=== PATIENT | male | born 1955 | race Caucasian/White ===

== ENCOUNTER 2016-11-24 14:59 | Emergency (ER) | payer OTHER ==
[2016-11-24] MEDS ORDERED: NORMAL SALINE 1,000 ML IV ONE (15:32)
[2016-11-24] MEDS ORDERED: ONDANSETRON HCL/PF 2 MG/ML VIAL IV ONE (15:33)
--- NOTE | 2016-11-24 15:33 | ERNOTE ---
Medical Problem HPI - Narrative Date of Service: 11/24/16 - General Chief Complaint: Nausea/Vomiting Time Seen by Provider: 11/24/16 15:26 Source: patient, RN notes reviewed Exam Limitations: no limitations - Immun/Allergies/Home Medications Immunizations: IMMUNIZATION HX Immunizations Up to Date Yes Allergies/Adverse Reactions: Allergies No Known Allergies Allergy (Verified 11/24/16 15:13) Home Medications: HOME MEDICATIONS Calcium Carb & Citrate/Vit D3 [Calcium + Vitamin D3 Caplet] 500 mg PO BID [Last Taken 09/22/13 10:00] Diclofenac Sodium [Voltaren] 50 mg PO BID 05/04/13 [Last Taken 09/22/13 10:00] Levothyroxine Sodium [Synthroid] 75 mcg PO DAILY 05/04/13 [Last Taken 09/22/13 10:00] Multivitamins [Multivitamin Loreto] 1 cap PO DAILY 05/04/13 [Last Taken 09/19/13 ] Omeprazole [Prilosec] 20 mg PO DAILY 05/04/13 [Last Taken 09/22/13 10:00] Sildenafil Citrate [Viagra] 100 mg PO DAILY PRN 05/04/13 [Last Taken Unknown] metFORMIN HCL [Glucophage] 500 mg PO BID 05/04/13 [Last Taken 09/22/13 10:00] Blood Sugar Diagnostic, Drum [Accu-Chek Compact] 1 each MC DAILY 05/13/14 [Last Taken Unknown] [place]-3/Dha/Epa/Fish Oil [Fish Oil 500 mg Softgel] 1 each PO DAILY 05/13/14 [ Last Taken Unknown] Aspirin 05/31/15 [Last Taken Unknown] Lorazepam 05/31/15 [Last Taken Unknown] Atorvastatin Calcium 09/24/16 [Last Taken Unknown] Bupropion HBr 09/24/16 [Last Taken Unknown] Gabapentin 09/24/16 [Last Taken Unknown] Lamotrigine 09/24/16 [Last Taken Unknown] Lorazepam 09/24/16 [Last Taken Unknown] Ondansetron [Zofran Odt] 8 mg PO Q8H PRN #12 tab 11/24/16 [Last Taken Unknown] - History of Present History Narrative: 61 year old male ambulatory to the ED for vomiting and diarrhea that began this morning. He had some gas, belching and stomach upset after dinner last evening. He had diarrhea from 0600 until about 1000 today. He last vomited 2 hours ago. He is concerned that he is dehydrated because he spent the past few days boating and had not been drinking much water. He denies any sick contacts. Date (Duration): 11/24/16 Time (Timing): 06:00 Review of Systems - Review of Systems Constitutional: Present: malaise. Absent: recent illness, fever, chills EYE: Present: no symptoms reported ENT: Present: no symptoms reported Respiratory: Absent: shortness of breath, cough Cardiology: Absent: chest pain, syncope Gastrointestinal/Abdominal: Present: nausea, vomiting, diarrhea, eating less, drinking less. Absent: abdominal pain Genitourinary: Absent: dysuria, decreased urinary output Musculoskeletal: Present: no symptoms reported Skin: Absent: rash, lesions Neurological: Absent: headache, dizziness/light-headedness Endocrine: Present: no symptoms reported Hematologic/Lymphatic: Present: no symptoms reported Psych: Present: no symptoms reported - Patient's Past Medical History Patient History - Medical: Diabetes Type 2, Depression Patient History - Cardiac/Respiratory: No pertinent hx Patient History - Cancer: No Hx of Cancer Patient History - Surgical Procedures: Orthopedic Patient History - Other: None - Social History Living Situations: home Abuse History: No History of abuse Psych History: Hx of Depression Smoking Status: Never smoker - Immunizations Immunizations Up to Date: Yes Physical Exam - Physical Exam General Appearance: Present: wd/wn, alert, no apparent distress, other - appears mildly uncomfortable Neck: Present: normal inspection, nontender, supple Respiratory: Present: no respiratory distress, normal breath sounds, no accessory muscle use, lungs clear Cardiovascular/Chest: Present: regular rate, rhythm, no murmur, normal peripheral pulses Gastrointestinal/Abdominal: Present: normal bowel sounds, soft, tenderness - Left upper and lower quads, mild, distended - Obese Extremity Exam: Present: normal inspection, no edema Neurological Exam: Present: alert, oriented, normal mood/affect, no motor/ sensory deficits Skin Exam: Present: normal color, warm/dry ED Progress - Results and Orders Patient's Lab Results:: I have reviewed the patient's lab results. - Vital Signs Patient's Vital Signs:: I have reviewed the patient's vital signs. Vital Signs: Vital Signs 11/24/16 15:04 Temperature 36.7 C Pulse Rate 97 Respiratory 14 Rate Blood Pressure 122/83 O2 Sat by Pulse 95 Oximetry - Progress/Reassessment Chief Complaint: Nausea/Vomiting Progress:: Improved Progress Note-Subjective: 11/24/16 17:02 Patient is feeling a lot better after IV fluids and Zofran. Will d/c with rx for Zofran ODT. Departure - Departure Clinical Impression: Viral gastroenteritis Disposition: Home Follow Up Needed Condition: Stable Instructions: Viral Gastroenteritis, Adult, [id number] Additional Instructions: Liquids as discussed - progress to soft, bland foods as tolerated Return for new/worsening symptoms Referrals: Linda Rainey DO [Primary Care Provider] - Prescriptions: Ondansetron [Zofran Odt] 8 mg PO Q8H PRN #12 tab PRN Reason: Nausea
[2016-11-24] MEDS ORDERED: ONDANSETRON HCL/PF 2 MG/ML VIAL ONE (15:39)
[2016-11-24 15:47] LABS: Hematocrit 40.3 % (42.0-52.0); Hemoglobin 13.8 gm/dL (13.5-18.0); Mean Cell Volume 87.2 fl (78-100); Mean Corpuscular Hemoglobin 29.9 pg (27-31); Mean Corpuscular Hgb Conc 34.2 g/dl (32-36); Mean Platelet Volume 10.1 fl (6.0-9.5); Neutrophil # 9.2 K/mm3 (1.3-6.0); Neutrophil % 85.5 % (42-75.0); Platelet Count 184 K/mm3 (150-450); Red Blood Count 4.62 M/mm3 (4.7-6.0); Red Cell Distribution Width 12.9 % (11.5-14.0); White Blood Count 10.8 K/mm3 (4.0-10.5)
[2016-11-24 16:00] LABS: Albumin * 4.3 gm/dl (3.4-5.0); Anion Gap 18.8 mmol/L (6.8-13.8); BUN/Creatinine Ratio 20.3 (9.0-21.6); Bilirubin, Total 0.9 mg/dL (0.0-1.1); Ca. Corrected For Albumin 8.9 mg/dL (8.4-10.2); Calcium * 9.5 mg/dL (7.9-10.9); Carbon Dioxide 22.4 mmol/L (24-32.6); Potassium 4.2 mmol/L (3.4-4.6); Total Protein 8.2 gm/dL (6.2-8.2)
[2016-11-24 16:57] VITALS: BP 114/76
== END 2016-11-24 17:13 | disposition home or self-care (01) ==
LOC: ER 14:59
DX: A08.4 Viral intestinal infection, unspecified (principal)
CPT/HCPCS: 36415; 80053; 85025; 96374; 99284; J2405

== ENCOUNTER 2020-04-20 14:50 | Inpatient (IN) ==
[2020-04-20] MEDS ORDERED: NORMAL SALINE 1,000 ML IV ONE ×2 (15:05→17:58)
--- NOTE | 2020-04-20 15:20 | ERNOTE ---
Dyspnea - Date Date of Service: 04/20/20 - General Presenting Symptoms: other - COVID-19 and hypoxia Time Seen by Provider: 04/20/20 14:59 Source: patient, EMS Exam Limitations: no limitations - Immun/Allergies/Home Medications Immunizations: IMMUNIZATION HX Immunizations Up to Date Yes History of Influenza Vaccine Yes Hx Pneumococcal Vaccination Yes Allergies/Adverse Reactions: Allergies No Known Allergies Allergy (Verified 04/20/20 14:53) Home Medications: HOME MEDICATIONS Blood Sugar Diagnostic, Drum [Accu-Chek Compact] 1 ea MC DAILY 05/13/14 [Last Taken Unknown] sildenafil 100 mg tablet 100 mg PO DAILY PRN #20 tab 05/11/19 [Last Taken Unknown] sertraline 100 mg tablet 100 mg PO DAILY #90 tab 11/17/19 [Last Taken Unknown] sertraline 25 mg tablet 25 mg PO DAILY #90 tab 11/17/19 [Last Taken Unknown] blood sugar diagnostic See Dose Instructions .ROUTE .MEDSUPPLY #100 ea 11/19/19 [Last Taken Unknown] gabapentin 300 mg capsule 600 mg PO HS 90 Days #180 cap 11/19/19 [Last Taken Unknown] lancets 28 gauge See Dose Instructions .ROUTE .MEDSUPPLY #100 ea 11/19/19 [Last Taken Unknown] metformin 1,000 mg tablet 1,000 mg PO BID #180 tab 11/19/19 [Last Taken Unknown] Cyclobenzaprine HCl 10 mg PO TID PRN #21 tab 01/03/20 [Last Taken Unknown] levothyroxine 75 mcg tablet 75 mcg PO DAILY #90 tab 02/17/20 [Last Taken Unknown] omeprazole 20 mg capsule,delayed release 20 mg PO DAILY #90 cap 02/17/20 [Last Taken Unknown] clonazepam 1 mg tablet 0.5 mg PO HS #90 tab 02/18/20 [Last Taken Unknown] atorvastatin 20 mg tablet 40 mg PO DAILY #0.1 tab 03/07/20 [Last Taken Unknown] benzonatate 200 mg capsule 200 mg PO TID PRN #30 cap 04/17/20 [Last Taken Unknown] Albuterol Sulfate [Proventil Hfa] 6.7 gm IH PRN PRN 04/20/20 [Last Taken Unknown] - History of Present Illness Narrative: This patient is a 65-year-old gentleman who arrived by ambulance with COVID-19 and hypoxia. He became ill on April 03, 2016 days ago, with fever, headache and cough. His fever and headache have resolved. He continues to cough. He has been feeling short of breath. He got a pulse oximeter yesterday and it has been reading in the 80s. He had a virtual appointment with Dr. De La Rosa today and was told to come to the hospital. Review of Systems - Review of Systems Constitutional: Absent: fever EYE: Absent: vision changes ENT: Absent: ear pain, nose congestion, nasal drainage, sore throat Respiratory: Present: shortness of breath, cough Cardiology: Absent: chest pain Gastrointestinal/Abdominal: Present: diarrhea. Absent: nausea, vomiting, constipation, abdominal pain Genitourinary: Absent: frequency, pain, dysuria, hematuria Musculoskeletal: Present: other - No leg pain Skin: Present: rash - He says he has gotten blisters on his abdomen and chest. Neurological: Absent: headache Endocrine: Present: other - He is diabetic on Metformin Hematologic/Lymphatic: Present: other - No active bleeding. Psych: Present: no symptoms reported Medical History (Last Reviewed 04/20/20 @ 15:18 by Nazario Campa MD) Joint pain in both hands (Acute) Skin lesion of face (Acute) r/o seborrheic keratoses Osteoarthritis (Acute) 1st MCP, right hand CRF (chronic renal failure) (Chronic) Type II diabetes mellitus (Chronic) GERD (gastroesophageal reflux disease) (Chronic) Major depressive disorder, recurrent, moderate (Acute) Hypothyroidism (Chronic) BPPV (benign paroxysmal positional vertigo) (Chronic) Hyperlipidemia (Chronic) Gastroesophageal reflux disease (Chronic) JOHNNIE on CPAP (Chronic) Diabetic neuropathy (Chronic) Type II diabetes mellitus (Chronic) Acute renal failure (Acute) Viral gastroenteritis (Acute) Lab test positive for detection of COVID-19 virus Onset Date: 04/06/20 BPPV (benign paroxysmal positional vertigo) Onset Date: 05/20/16 Depression Onset Date: Unknown Diabetes mellitus Onset Date: Unknown Erectile dysfunction Onset Date: Unknown GERD (gastroesophageal reflux disease) Onset Date: Unknown Hyperlipidemia Onset Date: Unknown Hypothyroidism Onset Date: Unknown Meralgia paraesthetica Onset Date: 05/20/16 Left Sleep apnea Onset Date: Unknown uses cpap Vertigo Onset Date: 06/11/11 persistent Surgical History: Surgical History (Last Reviewed 04/20/20 @ 15:18 by Nazario Campa MD) H/O barium enema Onset Date: 05/25/14 H/O colonoscopy Onset Date: 05/25/14 H/O foot surgery Onset Date: 04/20/09 right. saathoff-excision fibroma plantar area right 5th metatarsal H/O repair of rotator cuff Onset Date: 11/30/15 History of arthroplasty of left ankle Onset Date: 05/11/13 History of arthroscopic surgery of shoulder Onset Date: 08/01/05 Left History of arthroscopic surgery of shoulder Onset Date: 1994 Right Family History: Family History (Last Reviewed 04/20/20 @ 15:18 by Nazario Campa MD) Mother CVA (cerebral vascular accident) Brother Cancer Colon polyps Father PTSD (post-traumatic stress disorder) Sister Cancer Social History: (Last Reviewed 04/20/20 @ 15:18 by Nazario Campa MD) Social History: Marital status: lives independently: Yes household members: spouse current occupational status: employed current occupation: production Highest level of school completed/degree received: some college, no degree Service: Yes branch: [employer] dates of service: [employer] Tobacco: Smoking Status: Former smoker Alcohol: alcohol intake: former Substance Use: substance use type: does not use Dietary Habits: caffeine: Yes Type: coffee Physical Exam - Physical Exam General Appearance: Present: wd/wn, alert, moderate distress - He is anxious appearing and tachypneic. Head Exam: Present: normal inspection, no evidence of injury Eye Exam: Normal inspection: bilateral Ears, Nose, Throat: Present: normal ENT inspection Neck: Present: normal inspection, supple Respiratory: Present: no accessory muscle use, respiratory distress - Tachypneic, decreased breath sounds, crackles - Throughout. Cardiovascular/Chest: Present: no murmur, tachycardia Gastrointestinal/Abdominal: Present: normal bowel sounds, nontender, nondistended, soft, no organomegaly Back Exam: Present: normal inspection Extremity Exam: Present: normal inspection, non-tender, no edema Neurological Exam: Present: alert, oriented, no motor/sensory deficits - No gross lateralizing deficit.. Absent: normal mood/affect Skin Exam: Present: normal color, warm/dry, other - No blisters noted. There are some less than half centimeter red flat lesions on the chest and abdomen. Progress - Date and Time Seen: Date and Time: 04/20/20 16:58 Dr. Lyon agrees to admit the patient. - Results and Orders Patient's Lab Results:: I have reviewed the patient's lab results. Results and Orders: Laboratory Tests 04/20/20 04/20/20 04/20/20 15:15 15:15 15:15 WBC 5.5 RBC 4.38 L Hgb 12.4 L Hct 37.3 L MCV 85.2 MCH 28.3 MCHC 33.2 RDW 13.1 Plt Count 248 MPV 9.4 Lymphocytes % (Manual) Pending PT 12.9 H INR (Anticoag Therapy) 1.25 H PTT (Soni) D-Dimer Sodium 135 Plasma Sodium 135 Potassium 3.3 L Chloride 102 Carbon Dioxide 20.2 L Anion Gap 16.1 H BUN 12 Creatinine 1.20 Est GFR (Non-Af Amer) 64 D BUN/Creatinine Ratio 10.0 Random Glucose 108 Lactic Acid, Venous Calcium 8.2 Calcium Adj for Albumin 9.1 Total Bilirubin 0.8 AST 63 H ALT 40 Alkaline Phosphatase 110 Creatine Kinase 70 Troponin I Less than 0.017 C-Reactive Prot, Quant 13.3 H Total Protein 7.0 Albumin 2.5 L Ethyl Alcohol Less than 3.0 04/20/20 04/20/20 04/20/20 15:15 15:15 15:15 WBC RBC Hgb Hct MCV MCH MCHC RDW Plt Count MPV Lymphocytes % (Manual) PT INR (Anticoag Therapy) PTT (Soni) 24.4 D-Dimer 9.63 H Sodium Plasma Sodium Potassium Chloride Carbon Dioxide Anion Gap BUN Creatinine Est GFR (Non-Af Amer) BUN/Creatinine Ratio Random Glucose Lactic Acid, Venous 1.8 Calcium Calcium Adj for Albumin Total Bilirubin AST ALT Alkaline Phosphatase Creatine Kinase Troponin I C-Reactive Prot, Quant Total Protein Albumin Ethyl Alcohol - Vital Signs Patient's Vital Signs:: I have reviewed the patient's vital signs. Vital Signs: Vital Signs 04/20/20 14:50 Temperature 36.9 C Pulse Rate 111 H Respiratory Rate 46 H Blood Pressure 120/77 O2 Sat by Pulse Oximetry 92 L - EKG EKG #1 EKG read: Interp. by me EKG Comments: Sinus tachycardia Rate 105 Incomplete right bundle branch block Nonspecific ST and T wave changes Compared to an EKG dated 04/14/2020, the ST and T wave changes are improved. - X-Ray X-Ray #1 X-Ray: chest Interpretation: Reviewed by me X-ray Comments: Chest Single View *~ Exam Date: 04/20/2020 15:29 Ordering Physician: Nazario Campa MD HISTORY: covid, hypoxic ONE VIEW CHEST Comparison: 04/14/2020, 06/21/2015 Technique: A single portable upright AP view of the chest were obtained. Findings: The cardiac silhouette is within normal limits of size. The mediastinum and hilum are with in normal limits. There is consolidation involving the left mid to lower lung zone, concerning for pneumonia. There are probable subtle infiltrates in the right lung base. I do not see evidence for pleural effusion. IMPRESSION: 1. CONSOLIDATION / INFILTRATES INVOLVING THE LEFT MID TO LOWER LUNG ZONE AND POSSIBLY THE RIGHT LUNG BASE. Electronically signed by Cal Clark M.D.. - CT/Ultrasound CT/Ultrasound Narrative: CTA Chest~ Exam Date: 04/20/2020 16:07 Ordering Physician: Nazario Campa MD Indication: Covid positive. Increasing shortness of breath for 2 weeks. Worse today. Tachycardia. Hypoxia. Elevated d-dimer. Technique: Multiple thin-section contrast-enhanced axial CT images of the chest were obtained after rapid infusion of intravenous contrast material, according to pulmonary angiography protocol. Coronal and axial maximal intensity projection (MIP) images were also submitted for interpretation. Individualized dose optimization technique was used for the performed procedure including automated exposure control, adjustment of the mA and/or kV according to patient size and/or the iterative reconstruction technique. Comparison: No prior CT scans. Findings: There is suboptimal opacification of the pulmonary arterial system due to delayed bolus timing. However the exam is still diagnostic. No intraluminal filling defects to suggest pulmonary embolism. The aorta is normal caliber and course without aneurysmal dilation or evidence for dissection. There is diffuse bilateral airspace consolidation and patchy groundglass opacities involving all lung farmer bilaterally. Mostly involving the left lung compared to the right lung. Overall findings consistent with multifocal Covid pneumonia Mediastinal or hilar lymphadenopathy. The osseous structures demonstrate degenerative change of the spine and shoulders. IMPRESSION: 1. NO EVIDENCE FOR PULMONARY EMBOLISM. 2. EXTENSIVE BILATERAL LEFT WORSE THAN RIGHT MULTIFOCAL COVID PNEUMONIA. Electronically signed by Higinio Rogel D.O.. - Progress/Reassessment Chief Complaint: Dyspnea Departure Clinical Impression: Pneumonia due to COVID-19 virus, Hypoxia - Departure Disposition: Still a patient Condition: Fair Referrals: Elaine De La Rosa MD [Primary Care Provider] -
[2020-04-20 15:25] LABS: Hematocrit 37.3 % (42.0-52.0); Hemoglobin 12.4 gm/dL (13.5-18.0); Mean Cell Volume 85.2 fl (78-100); Mean Corpuscular Hemoglobin 28.3 pg (27-31); Mean Corpuscular Hgb Conc 33.2 g/dl (32-36); Mean Platelet Volume 9.4 fl (8-11.3); Platelet Count 248 K/mm3 (150-450); Red Blood Count 4.38 M/mm3 (4.7-6.0); Red Cell Distribution Width 13.1 % (11.5-14.0); White Blood Count 5.5 K/mm3 (4.0-10.5)
[2020-04-20 15:30] LABS: Total Cells Counted 100
[2020-04-20 15:34] LABS: Prothrombin Time (Patient) 12.9 Seconds (9.1-10.7)
[2020-04-20 15:36] LABS: INR 1.25 INR (0.92-1.08)
[2020-04-20 15:47] LABS: ALT 40 U/L (19-67); AST 63 U/L (0-48); Albumin * 2.5 gm/dl (3.4-5.0); Alkaline Phosphatase * 110 U/L (50-170); Anion Gap 16.1 mmol/L (6.8-13.8); Bilirubin, Total 0.8 mg/dL (0.0-1.1); Blood Urea Nitrogen 12 mg/dL (6-23); CK Total * 70 U/L (0-259); Ca. Corrected For Albumin 9.1 mg/dL (8.4-10.2); Calcium * 8.2 mg/dL (7.9-10.9); Carbon Dioxide 20.2 mmol/L (24-32.6); Chloride 102 mmol/L (97-106); Glucose * 108 mg/dL (70-110); Potassium 3.3 mmol/L (3.4-4.6); Sodium 135 mmol/L (132-142)
[2020-04-20 15:54] LABS: Troponin I Less than 0.017 ng/mL (0.00-0.10)
[2020-04-20 15:55] LABS: CRP 13.3 mg/dL (0.0-0.9)
[2020-04-20 16:43] LABS: Atypical (Reactive) Lymph 2 % (0-2); Basophil 1 % (0-1); Eosinophil 2 % (0-3); Lymphocyte 17 % (20-51); Monocyte 8 % (0-9); Neutrophil 70 % (42-75); Neutrophil # 3.9 K/mm3 (1.3-6.0)
[2020-04-20 16:45] LABS: Giant Platelets Trace; Platelet Estimate Normal (NORMAL)
[2020-04-20] MEDS ORDERED: CYCLOBENZAPRINE HCL 10 MG TABLET PO PRN (18:01)
[2020-04-20] MEDS ORDERED: BENZONATATE 200 MG PO PRN (18:01)
[2020-04-20] MEDS ORDERED: ALBUTEROL SULFATE/IPRATROPIUM 3 ML NEBU IH PRN (18:06)
[2020-04-20] MEDS ORDERED: LANCETS SCH (18:15)
[2020-04-20] MEDS ORDERED: DEXAMETHASONE 4 MG TABLET PO SCH (18:45)
--- NOTE | 2020-04-20 18:50 | HP ---
Chief Complaint - Chief Complaint Date of Service: 04/20/20 Time of Service: 18:37 Chief Complaint: I have cough fever chills and weakness for more than 2 weeks History of Present Illness: 65-year-old male with past medical history of type 2 diabetes, hyperlipidemia, GERD, depression, JOHNNIE on CPAP, diabetic neuropathy, and hypothyroidism was evaluated in the ER for worsening shortness of breath cough and weakness of more than 2 weeks duration. The patient reports becoming ill on April 04 when he developed significant chills followed by fever, he reports developing an intense dry cough the following day and gradually got weak. His symptoms progressively got worse so he himself and his daughter went to the respiratory clinic here at [facility] where they were tested for COVID-19 virus, there were subsequently found to be positive and were sent into quarantine. The patient gradually worsened and reports his cough got so bad that he could not use his CPAP which kept him from sleeping. He developed significant shortness of breath and went to the ER. [facility] on Friday, the patient was evaluated was treated with IV fluids potassium replacement and was prescribed an oral antitussive and was discharged home. However he worsened instead of improved and his shortness of breath became more severe, this morning at 4 AM the patient was awakened to a coughing fit and difficulty breathing so he called his PCPs office. He informed the PCP that his oxygen saturation has been in the mid to upper 80s which is new for him so he was advised to go to the ER. Once in the ER the patient had a chest x-ray that showed bilateral infiltrates worse on the left and was found to have crackles. He was treated with IV fluids and cough suppressants and the internal medicine service was consulted. Medical History (Last Reviewed 04/20/20 @ 15:18 by Nazario Campa MD) Joint pain in both hands (Acute) Skin lesion of face (Acute) r/o seborrheic keratoses Osteoarthritis (Acute) 1st MCP, right hand CRF (chronic renal failure) (Chronic) Type II diabetes mellitus (Chronic) GERD (gastroesophageal reflux disease) (Chronic) Major depressive disorder, recurrent, moderate (Acute) Hypothyroidism (Chronic) BPPV (benign paroxysmal positional vertigo) (Chronic) Hyperlipidemia (Chronic) Gastroesophageal reflux disease (Chronic) JOHNNIE on CPAP (Chronic) Diabetic neuropathy (Chronic) Type II diabetes mellitus (Chronic) Acute renal failure (Acute) Viral gastroenteritis (Acute) Lab test positive for detection of COVID-19 virus Onset Date: 04/06/20 BPPV (benign paroxysmal positional vertigo) Onset Date: 05/20/16 Depression Onset Date: Unknown Diabetes mellitus Onset Date: Unknown Erectile dysfunction Onset Date: Unknown GERD (gastroesophageal reflux disease) Onset Date: Unknown Hyperlipidemia Onset Date: Unknown Hypothyroidism Onset Date: Unknown Meralgia paraesthetica Onset Date: 05/20/16 Left Sleep apnea Onset Date: Unknown uses cpap Vertigo Onset Date: 06/11/11 persistent Surgical History: Surgical History (Last Reviewed 04/20/20 @ 15:18 by Nazario Campa MD) H/O barium enema Onset Date: 05/25/14 H/O colonoscopy Onset Date: 05/25/14 H/O foot surgery Onset Date: 04/20/09 right. saathoff-excision fibroma plantar area right 5th metatarsal H/O repair of rotator cuff Onset Date: 11/30/15 History of arthroplasty of left ankle Onset Date: 05/11/13 History of arthroscopic surgery of shoulder Onset Date: 08/01/05 Left History of arthroscopic surgery of shoulder Onset Date: 1994 Right Family History: Family History (Last Reviewed 04/20/20 @ 15:18 by Nazario Campa MD) Mother CVA (cerebral vascular accident) Brother Cancer Colon polyps Father PTSD (post-traumatic stress disorder) Sister Cancer Social History: (Last Reviewed 04/20/20 @ 15:18 by Nazario Campa MD) Social History: Marital status: lives independently: Yes household members: spouse current occupational status: employed current occupation: production Highest level of school completed/degree received: some college, no degree Service: Yes branch: [employer] dates of service: [employer] Tobacco: Smoking Status: Former smoker Alcohol: alcohol intake: former Substance Use: substance use type: does not use Dietary Habits: caffeine: Yes Type: coffee Peds Patient Hx - Developmental: No Pertinent Hx Peds Patient Hx - Medical: No Pertinent Hx Peds Patient Hx - Cardiac/Respiratory: No Pertinent Hx Peds Patient Hx - Surgical: No Surgical History Patient History - Cancer: No Hx of Cancer Review Of Systems (GEN) - Review of Systems Generalized/Overall Review: Present: Weakness, Chills, Fever, Malaise, Fatigue EENTM: Present: No Symptoms Reported Respiratory: Present: Cough, Shortness of Breath Cardiac: Present: No Symptoms Reported Abdominal: Present: No Symptoms Reported Genitourinary: Present: No Symptoms Reported Musculoskeletal: Present: No Symptoms Reported Neurological: Present: No Symptoms Reported Skin: Present: Rash - Maculopapular rash on back 2 weeks duration Endocrine: Present: No Symptoms Reported Misc: All systems neg except as marked Immunizations: IMMUNIZATION HX Immunizations Up to Date Yes History of Influenza Vaccine Yes Hx Pneumococcal Vaccination Yes Allergies/Adverse Reactions: Allergies Allergy/AdvReac Type Severity Reaction Status Date / Time No Known Allergies Allergy Verified 04/20/20 14:53 Home Medications: HOME MEDICATIONS Blood Sugar Diagnostic, Drum [Accu-Chek Compact] 1 ea MC DAILY 05/13/14 [Last Taken Unknown] sildenafil 100 mg tablet 100 mg PO DAILY PRN #20 tab 05/11/19 [Last Taken Unknown] sertraline 100 mg tablet 100 mg PO DAILY #90 tab 11/17/19 [Last Taken Unknown] sertraline 25 mg tablet 25 mg PO DAILY #90 tab 11/17/19 [Last Taken Unknown] blood sugar diagnostic See Dose Instructions .ROUTE .MEDSUPPLY #100 ea 11/19/19 [Last Taken Unknown] gabapentin 300 mg capsule 600 mg PO HS 90 Days #180 cap 11/19/19 [Last Taken Unknown] lancets 28 gauge See Dose Instructions .ROUTE .MEDSUPPLY #100 ea 11/19/19 [Last Taken Unknown] metformin 1,000 mg tablet 1,000 mg PO BID #180 tab 11/19/19 [Last Taken Unknown] Cyclobenzaprine HCl 10 mg PO TID PRN #21 tab 01/03/20 [Last Taken Unknown] levothyroxine 75 mcg tablet 75 mcg PO DAILY #90 tab 02/17/20 [Last Taken Unknown] omeprazole 20 mg capsule,delayed release 20 mg PO DAILY #90 cap 02/17/20 [Last Taken Unknown] clonazepam 1 mg tablet 0.5 mg PO HS #90 tab 02/18/20 [Last Taken Unknown] atorvastatin 20 mg tablet 40 mg PO DAILY #0.1 tab 03/07/20 [Last Taken Unknown] benzonatate 200 mg capsule 200 mg PO TID PRN #30 cap 04/17/20 [Last Taken Unknown] Albuterol Sulfate [Proventil Hfa] 6.7 gm IH PRN PRN 04/20/20 [Last Taken Unknown] Exam - Exam Vital Signs: Vital Signs - Last Taken Temp 37.5 C 04/20/20 17:23 Pulse 91 04/20/20 17:23 Resp 35 H 04/20/20 17:23 BP 118/89 04/20/20 17:23 Pulse Ox 94 04/20/20 17:23 Constitutional: Present: Alert, Oriented x3, Cooperative, Well developed, Well nourished, No distress ENT Exam: Present: normal ENT inspection, hearing grossly normal, pharynx normal Eye Exam: bilateral eye: normal inspection, PERRL, EOMI Neck: Present: non-tender, full range of motion, supple, normal inspection, trachea midline Back Exam: Present: normal inspection, no CVA tenderness, no vertebral tenderness Breasts: Present: Exam deferred, Nontender Respiratory: Present: chest non-tender, no respiratory distress, no accessory muscle use, crackles - Bibasilar crackles worse on left Cardiovascular/Chest: Present: normal peripheral pulses, regular rate, rhythm, no chest tenderness, no edema, no gallop, no JVD, no murmur, no rub Peripheral Pulses: carotid (R): 3+, carotid (L): 3+, femoral (R): 3+, femoral (L): 3+, dorsalis-pedis (R): 3+, dorsalis-pedis (L): 3+ Abdomen: Present: Normal bowel sounds, soft, nontender, nondistended, no rebound tenderness, no hepatospenomegaly, no masses, obese /Rectal: Present: Exam deferred Extremity: Present: normal range of motion, non-tender, normal inspection, no pedal edema, no calf tenderness, normal capillary refill, pelvis stable Skin Exam: Present: skin rash - Maculopapular rash on upper back, other Lymphatic: Present: no adenopathy Neurologic: Present: 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, normal cerebellar test, no motor/sensory deficits, alert, normal mood/affect, oriented x 3 Appearance: Present: appropriate appearance, appropriate insight, neat, no memory impairment Eye contact: Present: cooperative, good eye contact, normal speech Thoughts: Present: normal thought pattern, no apparent hallucination Diagnostic Studies: Abnormal Lab Results 04/20/20 04/20/20 04/20/20 Range/Units 15:15 15:15 15:15 RBC 4.38 L (4.7-6.0) M/mm3 Hgb 12.4 L (13.5-18.0) gm/dL Hct 37.3 L (42.0-52.0) % Lymphocytes % (Manual) 17 L (20-51) % Lymphocytes # (Manual) 0.9 L (1.5-3.5) k/mm3 PT 12.9 H (9.1-10.7) Seconds INR (Anticoag Therapy) 1.25 H (0.92-1.08) INR D-Dimer (0.19-0.49) ug/mL Potassium 3.3 L (3.4-4.6) mmol/L Carbon Dioxide 20.2 L (24-32.6) mmol/L Anion Gap 16.1 H (6.8-13.8) mmol/L AST 63 H (0-48) U/L C-Reactive Prot, Quant 13.3 H (0.0-0.9) mg/dL Albumin 2.5 L (3.4-5.0) gm/dl 04/20/20 Range/Units 15:15 RBC (4.7-6.0) M/mm3 Hgb (13.5-18.0) gm/dL Hct (42.0-52.0) % Lymphocytes % (Manual) (20-51) % Lymphocytes # (Manual) (1.5-3.5) k/mm3 PT (9.1-10.7) Seconds INR (Anticoag Therapy) (0.92-1.08) INR D-Dimer 9.63 H (0.19-0.49) ug/mL Potassium (3.4-4.6) mmol/L Carbon Dioxide (24-32.6) mmol/L Anion Gap (6.8-13.8) mmol/L AST (0-48) U/L C-Reactive Prot, Quant (0.0-0.9) mg/dL Albumin (3.4-5.0) gm/dl Laboratory Results WBC 5.5 K/mm3 (4.0-10.5) 04/20/20 15:15 RBC 4.38 M/mm3 (4.7-6.0) L 04/20/20 15:15 Hgb 12.4 gm/dL (13.5-18.0) L 04/20/20 15:15 Hct 37.3 % (42.0-52.0) L 04/20/20 15:15 MCV 85.2 fl (78-100) 04/20/20 15:15 MCH 28.3 pg (27-31) 04/20/20 15:15 MCHC 33.2 g/dl (32-36) 04/20/20 15:15 RDW 13.1 % (11.5-14.0) 04/20/20 15:15 Plt Count 248 K/mm3 (150-450) 04/20/20 15:15 MPV 9.4 fl (8-11.3) 04/20/20 15:15 Neutrophils % (Manual) 70 % (42-75) 04/20/20 15:15 Lymphocytes % (Manual) 17 % (20-51) L 04/20/20 15:15 Monocytes % (Manual) 8 % (0-9) 04/20/20 15:15 Eosinophils % (Manual) 2 % (0-3) 04/20/20 15:15 Basophils % (Manual) 1 % (0-1) 04/20/20 15:15 Neutrophils # (Manual) 3.9 K/mm3 (1.3-6.0) 04/20/20 15:15 Lymphocytes # (Manual) 0.9 k/mm3 (1.5-3.5) L 04/20/20 15:15 Monocytes # (Manual) 0.4 k/mm3 (0.0-1.0) 04/20/20 15:15 Eosinophils # (Manual) 0.1 k/mm3 (0.0-0.7) 04/20/20 15:15 Basophils # (Manual) 0.1 k/mm3 (0.0-0.1) 04/20/20 15:15 Atypic/Reactive Lymphs 2 % (0-2) 04/20/20 15:15 Toxic Vacuolation Trace 04/20/20 15:15 Platelet Estimate Normal (NORMAL) 04/20/20 15:15 Giant Platelets Trace 04/20/20 15:15 PT 12.9 Seconds (9.1-10.7) H 04/20/20 15:15 INR (Anticoag Therapy) 1.25 INR (0.92-1.08) H 04/20/20 15:15 PTT (Soni) 24.4 Seconds (24-32) 04/20/20 15:15 D-Dimer 9.63 ug/mL (0.19-0.49) H 04/20/20 15:15 Sodium 135 mmol/L (132-142) 04/20/20 15:15 Plasma Sodium 135 mmol/L (130-142) 04/20/20 15:15 Potassium 3.3 mmol/L (3.4-4.6) L 04/20/20 15:15 Chloride 102 mmol/L (97-106) 04/20/20 15:15 Carbon Dioxide 20.2 mmol/L (24-32.6) L 04/20/20 15:15 Anion Gap 16.1 mmol/L (6.8-13.8) H 04/20/20 15:15 BUN 12 mg/dL (6-23) 04/20/20 15:15 Creatinine 1.20 mg/dL (0.4-1.4) 04/20/20 15:15 Est GFR (Non-Af Amer) 64 mL/min (60-130) D 04/20/20 15:15 BUN/Creatinine Ratio 10.0 (9.0-21.6) 04/20/20 15:15 Random Glucose 108 mg/dL (70-110) 04/20/20 15:15 Lactic Acid, Venous 1.8 mmol/L (0.4-2.0) 04/20/20 15:15 Calcium 8.2 mg/dL (7.9-10.9) 04/20/20 15:15 Calcium Adj for Albumin 9.1 mg/dL (8.4-10.2) 04/20/20 15:15 Total Bilirubin 0.8 mg/dL (0.0-1.1) 04/20/20 15:15 AST 63 U/L (0-48) H 04/20/20 15:15 ALT 40 U/L (19-67) 04/20/20 15:15 Alkaline Phosphatase 110 U/L (50-170) 04/20/20 15:15 Creatine Kinase 70 U/L (0-259) 04/20/20 15:15 Troponin I Less than 0.017 ng/mL (0.00-0.10) 04/20/20 15:15 C-Reactive Prot, Quant 13.3 mg/dL (0.0-0.9) H 04/20/20 15:15 Total Protein 7.0 gm/dL (6.2-8.2) 04/20/20 15:15 Albumin 2.5 gm/dl (3.4-5.0) L 04/20/20 15:15 Ethyl Alcohol Less than 3.0 mg/dL (0.0-10.0) 04/20/20 15:15 Assessment/Plan - Narrative Narrative: Patient was evaluated medical chart was reviewed and decision to admit to [facility] for inpatient treatment of COVID-19 viral pneumonia and hypoxia was made. Patient has been transported to room we will treat him with oral steroids, IV fluids, and supportive therapy including O2 by nasal cannula. He is resting comfortably at the moment but continues to have a dry cough so antitussives including Robitussin was ordered. He is tolerating O2 by nasal cannula without any issues and is saturating adequately. We will continue to monitor him throughout the evening. All his routine medications have been reconciled to be administered during the hospitalization. Patient is outside of the 10-day window so he will not be treated with remdesivir since he does not qualify. Patient was found to have a positive D-dimer on labs so subsequent chest CTA was ordered but was negative for PE. His potassium was mildly decreased, so p.o. replacement was ordered. Follow-up labs have been ordered for tomorrow morning. - Assessment/Plan (1) Fatigue Problem: Acute Qualifiers: (2) COVID-19 Problem: Acute (3) Generalized weakness Problem: Acute (4) Hyperactive airway disease Problem: Acute (5) Pneumonia due to COVID-19 virus Problem: Acute (6) Hypoxia Problem: Acute (7) Type II diabetes mellitus Problem: Chronic (8) GERD (gastroesophageal reflux disease) Problem: Chronic (9) Major depressive disorder, recurrent, moderate Problem: Acute (10) JOHNNIE on CPAP Problem: Chronic (11) Hypokalemia Problem: Acute (12) D-dimer, elevated Problem: Acute
[2020-04-20] MEDS ORDERED: POTASSIUM CHLORIDE 20 MEQ TABLET.SA PO ONE (21:00)
[2020-04-20] MEDS ORDERED: clonazePAM 1 MG TABLET PO SCH (21:00)
[2020-04-20] MEDS ORDERED: GABAPENTIN 300 MG CAPSULE PO SCH (21:00)
[2020-04-20] MEDS ORDERED: BENZONATATE 100 MG CAPSULE PO PRN (21:30)
[2020-04-20] MEDS: ENOXAPARIN SODIUM 40 MG/0.4 ML SYRG SC SCH (21:50)
[2020-04-20] MEDS ORDERED: BLOOD SUGAR DIAGNOSTIC 1 EACH STRIP MC SCH (22:00)
[2020-04-21] MEDS: guaiFENesin/DEXTROMETHORPHAN SYRUP PO PRN ×3 (00:43→14:35)
[2020-04-21 06:49] LABS: Albumin * 2.4 gm/dl (3.4-5.0); Anion Gap 14.1 mmol/L (6.8-13.8); BUN/Creatinine Ratio 10.8 (9.0-21.6); Bilirubin, Total 0.6 mg/dL (0.0-1.1); Ca. Corrected For Albumin 9.2 mg/dL (8.4-10.2); Calcium * 8.2 mg/dL (7.9-10.9); Carbon Dioxide 23.5 mmol/L (24-32.6); Potassium 4.6 mmol/L (3.4-4.6); Total Protein 7.1 gm/dL (6.2-8.2)
[2020-04-21 06:58] LABS: Hematocrit 36.3 % (42.0-52.0); Hemoglobin 11.9 gm/dL (13.5-18.0); Mean Cell Volume 86.8 fl (78-100); Mean Corpuscular Hemoglobin 28.5 pg (27-31); Mean Corpuscular Hgb Conc 32.8 g/dl (32-36); Mean Platelet Volume 9.6 fl (8-11.3); Platelet Count 258 K/mm3 (150-450); Red Blood Count 4.18 M/mm3 (4.7-6.0); Red Cell Distribution Width 13.2 % (11.5-14.0)
[2020-04-21 07:10] LABS: Total Cells Counted 100
[2020-04-21 07:24] LABS: Atypical (Reactive) Lymph 3 % (0-2); Lymphocyte 12 % (20-51); Monocyte 6 % (0-9); Neutrophil 79 % (42-75); Platelet Estimate Normal (NORMAL); RBC Morphology Normal (NORMAL)
[2020-04-21] MEDS: PANTOPRAZOLE SODIUM 20 MG TABLET.DR PO SCH (07:48)
[2020-04-21] MEDS: LEVOTHYROXINE SODIUM 75 MCG TABLET PO SCH (07:48)
[2020-04-21] MEDS ORDERED: PANTOPRAZOLE SODIUM 20 MG TABLET.DR PO SCH (09:00)
[2020-04-21] MEDS: ROSUVASTATIN CALCIUM 20 MG TABLET PO SCH (09:17)
[2020-04-21] MEDS: DEXAMETHASONE 2 MG TABLET PO SCH (09:17)
[2020-04-21] MEDS: SERTRALINE HCL 50 MG TABLET PO SCH (09:17)
[2020-04-21] MEDS: SERTRALINE HCL 100 MG TABLET PO SCH (09:18)
--- NOTE | 2020-04-21 10:22 | PN ---
Subjective - Date and Time Seen Date: 04/21/20 Time: 10:17 Subjective Narrative: I still have a cough and feel weak but feel a little bit better Objective Objective Narrative: 65-year-old male admitted for viral COVID-19 pneumonia and hypoxia was evaluated at bedside and was found to be afebrile and in no acute distress. Patient has shown some clinical improvement however is still in need of additional day of hospitalization for treatment with dexamethasone and supportive care. We were able to wean him off of O2 and is saturating adequately on room air for the moment, however the patient still has tachypnea and a persistent dry cough. Auscultation of his lungs this morning revealed significant crackles at the bases worse on left indicating the need for additional doses of steroids. We will keep the patient for an additional day for intrahospital care and monitoring. - Review of Systems Generalized/Overall Review: Reports: Weakness EENTM: Reports: No Symptoms Reported Respiratory: Reports: Cough, Shortness of Breath Cardiac: Reports: No Symptoms Reported Abdominal: Reports: No Symptoms Reported Genitourinary Symptoms: Reports: No Symptoms Reported Musculoskeletal Complaints: Reports: No Symptoms Reported Neurological: Reports: No Symptoms Reported Skin: Reports: No Symptoms Reported Endocrine: Reports: No Symptoms Reported - Vitals Vitals: Last Vital Signs Temp 36.4 C 04/21/20 10:07 Pulse 69 04/21/20 10:07 Resp 30 H 04/21/20 10:07 BP 116/74 04/21/20 10:07 Pulse Ox 97 04/21/20 10:07 - Abnormal Lab Findings Abnormal Lab Findings: Abnormal Lab Results 04/20/20 04/20/20 04/20/20 Range/Units 15:15 15:15 15:15 RBC 4.38 L (4.7-6.0) M/mm3 Hgb 12.4 L (13.5-18.0) gm/dL Hct 37.3 L (42.0-52.0) % Neutrophils % (Manual) (42-75) % Lymphocytes % (Manual) 17 L (20-51) % Lymphocytes # (Manual) 0.9 L (1.5-3.5) k/mm3 Atypic/Reactive Lymphs (0-2) % PT 12.9 H (9.1-10.7) Seconds INR (Anticoag Therapy) 1.25 H (0.92-1.08) INR D-Dimer (0.19-0.49) ug/mL Potassium 3.3 L (3.4-4.6) mmol/L Chloride (97-106) mmol/L Carbon Dioxide 20.2 L (24-32.6) mmol/L Anion Gap 16.1 H (6.8-13.8) mmol/L Random Glucose (70-110) mg/dL AST 63 H (0-48) U/L C-Reactive Prot, Quant 13.3 H (0.0-0.9) mg/dL Albumin 2.5 L (3.4-5.0) gm/dl 04/20/20 04/21/20 04/21/20 Range/Units 15:15 06:30 06:30 RBC 4.18 L (4.7-6.0) M/mm3 Hgb 11.9 L (13.5-18.0) gm/dL Hct 36.3 L (42.0-52.0) % Neutrophils % (Manual) 79 H (42-75) % Lymphocytes % (Manual) 12 L (20-51) % Lymphocytes # (Manual) 0.6 L (1.5-3.5) k/mm3 Atypic/Reactive Lymphs 3 H (0-2) % PT (9.1-10.7) Seconds INR (Anticoag Therapy) (0.92-1.08) INR D-Dimer 9.63 H (0.19-0.49) ug/mL Potassium (3.4-4.6) mmol/L Chloride 107 H (97-106) mmol/L Carbon Dioxide 23.5 L (24-32.6) mmol/L Anion Gap 14.1 H (6.8-13.8) mmol/L Random Glucose 154 H D (70-110) mg/dL AST 67 H (0-48) U/L C-Reactive Prot, Quant (0.0-0.9) mg/dL Albumin 2.4 L (3.4-5.0) gm/dl - Exam Constitutional: Present: Alert, Oriented x3, Cooperative, Well developed, Well nourished, No distress, Elderly ENT Exam: Present: normal ENT inspection, hearing grossly normal, pharynx normal Neck: Present: non-tender, full range of motion, supple, normal inspection, trachea midline Breasts: Present: Exam deferred, Nontender Respiratory: Present: crackles - Bibasilar crackles worse on the left Cardiovascular/Chest: Present: normal peripheral pulses, regular rate, rhythm, no chest tenderness, no edema, no gallop, no JVD, no murmur, no rub Abdomen: Present: Normal bowel sounds, soft, nontender, nondistended, no rebound tenderness, no hepatospenomegaly, no masses /Rectal: Present: Exam deferred Extremity: Present: normal range of motion, non-tender, normal inspection, no pedal edema, no calf tenderness, normal capillary refill, pelvis stable Skin Exam: Present: normal color, warm/dry, no cyanosis Lymphatic: Present: no adenopathy Neurologic: Present: 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, no motor/sensory deficits, alert, normal mood/affect, oriented x 3 Appearance: Present: appropriate appearance, appropriate insight, neat, no memory impairment Eye contact: Present: cooperative, good eye contact, normal speech Thoughts: Present: normal thought pattern, no apparent hallucination Assessment/Plan - Problems/Diagnosis (1) Fatigue Problem: Acute Qualifiers: (2) COVID-19 Problem: Acute (3) Generalized weakness Problem: Acute (4) Hyperactive airway disease Problem: Acute (5) Pneumonia due to COVID-19 virus Problem: Acute (6) Hypoxia Problem: Resolved (7) Type II diabetes mellitus Problem: Chronic (8) GERD (gastroesophageal reflux disease) Problem: Chronic (9) Major depressive disorder, recurrent, moderate Problem: Acute (10) JOHNNIE on CPAP Problem: Chronic (11) Hypokalemia Problem: Acute (12) D-dimer, elevated Problem: Acute (13) Cough Problem: Acute
[2020-04-21] MEDS: ACETAMINOPHEN 325 MG TABLET PO PRN ×2 (16:33→20:58)
[2020-04-21] MEDS: ENOXAPARIN SODIUM 40 MG/0.4 ML SYRG SC SCH (20:58)
[2020-04-21] MEDS: clonazePAM 0.5 MG TABLET PO SCH (20:58)
[2020-04-21] MEDS: GABAPENTIN 600 MG TABLET PO SCH (20:59)
--- NOTE | 2020-04-22 07:05 | PN ---
Subjective - Date and Time Seen Date: 04/22/20 Time: 06:35 Subjective Narrative: Patient reports ongoing cough and some shortness of breath. He is eating and drinking and can ambulate to the bathroom. He does not feel comfortable going home today. He was in the ER and sent home, and is worried that if he goes home now he will have to come right back. IV access was lost this morning. He has been using the incentive spirometer. Objective - Review of Systems Generalized/Overall Review: Denies: Fever Respiratory: Reports: Cough, Shortness of Breath Cardiac: Denies: Chest Pain, Edema Abdominal: Reports: No Symptoms Reported Genitourinary Symptoms: Reports: No Symptoms Reported - Vitals Vitals: Last Vital Signs Temp 36.4 C 04/22/20 02:00 Pulse 67 04/22/20 02:00 Resp 22 H 04/22/20 02:00 BP 110/64 04/22/20 02:00 Pulse Ox 92 L 04/22/20 02:00 - Abnormal Lab Findings Abnormal Lab Findings: Abnormal Lab Results 04/21/20 Range/Units 06:30 RBC 4.18 L (4.7-6.0) M/mm3 Hgb 11.9 L (13.5-18.0) gm/dL Hct 36.3 L (42.0-52.0) % Neutrophils % (Manual) 79 H (42-75) % Lymphocytes % (Manual) 12 L (20-51) % Lymphocytes # (Manual) 0.6 L (1.5-3.5) k/mm3 Atypic/Reactive Lymphs 3 H (0-2) % - Exam Constitutional: Present: Alert, Cooperative, No distress Respiratory: Present: normal breath sounds, other - Oxygenating at 92% on room air. Frequent dry cough Cardiovascular/Chest: Present: regular rate, rhythm Abdomen: Present: soft Extremity: Absent: lower extremity edema Eye contact: Present: cooperative, good eye contact Assessment/Plan Plan Narrative: Today is around day 19 of illness. He continues to have an elevated respiratory rate and oxygen is around the low 90s on room air. Since his respiratory status is not at baseline, will keep him here again tonight in anticipation of possible discharge tomorrow. Would like for his respiratory rate to be less than 20 prior to DC. His oxygen does dip down to 90, but recovers without needing supplemental oxygen. - Problems/Diagnosis (1) COVID-19 Problem: Acute (2) Generalized weakness Problem: Acute (3) Hypoxia Problem: Resolved (4) Cough Problem: Acute (5) Type II diabetes mellitus Problem: Chronic (6) GERD (gastroesophageal reflux disease) Problem: Chronic (7) Major depressive disorder, recurrent, moderate Problem: Acute (8) Hypothyroidism Problem: Chronic Qualifiers: Hypothyroidism type: unspecified Qualified Code(s): E03.9 - Hypothyroidism, unspecified (9) JOHNNIE on CPAP Problem: Chronic
[2020-04-22] MEDS: LEVOTHYROXINE SODIUM 75 MCG TABLET PO SCH (07:15)
[2020-04-22] MEDS: PANTOPRAZOLE SODIUM 20 MG TABLET.DR PO SCH (07:16)
[2020-04-22] MEDS: ROSUVASTATIN CALCIUM 20 MG TABLET PO SCH (08:36)
[2020-04-22] MEDS: SERTRALINE HCL 50 MG TABLET PO SCH (08:37)
[2020-04-22] MEDS: DEXAMETHASONE 2 MG TABLET PO SCH (08:37)
[2020-04-22] MEDS: SERTRALINE HCL 100 MG TABLET PO SCH (08:37)
[2020-04-22] MEDS: ENOXAPARIN SODIUM 40 MG/0.4 ML SYRG SC SCH (22:18)
[2020-04-22] MEDS: GABAPENTIN 600 MG TABLET PO SCH (22:18)
[2020-04-22] MEDS: clonazePAM 0.5 MG TABLET PO SCH (22:18)
[2020-04-23] MEDS: PANTOPRAZOLE SODIUM 20 MG TABLET.DR PO SCH (06:41)
[2020-04-23] MEDS: LEVOTHYROXINE SODIUM 75 MCG TABLET PO SCH (06:41)
[2020-04-23] MEDS: DEXAMETHASONE 2 MG TABLET PO SCH (08:29)
[2020-04-23] MEDS: SERTRALINE HCL 50 MG TABLET PO SCH (08:29)
[2020-04-23] MEDS: SERTRALINE HCL 100 MG TABLET PO SCH (08:30)
[2020-04-23] MEDS: ROSUVASTATIN CALCIUM 20 MG TABLET PO SCH (08:30)
--- NOTE | 2020-04-23 11:40 | DS ---
(1) COVID-19 Problem: Acute (2) Generalized weakness Problem: Acute (3) Hypoxia Problem: Resolved (4) Cough Problem: Acute (5) Type II diabetes mellitus Problem: Chronic (6) GERD (gastroesophageal reflux disease) Problem: Chronic (7) Major depressive disorder, recurrent, moderate Problem: Chronic (8) Hypothyroidism Problem: Chronic Qualifiers: Hypothyroidism type: unspecified Qualified Code(s): E03.9 - Hypothyroidism, unspecified (9) JOHNNIE on CPAP Problem: Chronic Date of Discharge:: 04/23/20 Hospital Course: Patient admitted on 04/20/20 for hypoxia due to COVID. He tested positive around April 04. He was given decadron while here. He required oxygen supplementation via [place], maximum 4L. He was able to wean from oxygen on 04/21, but was still tachypneic. This improved by the day of DC. He was able to maintain po hydration and ambulate to the bathroom. Procedures Performed: none Results and Findings: Lab Pending Results 04/20/20 15:15: WBC 5.5, RBC 4.38 L, Hgb 12.4 L, Hct 37.3 L, MCV 85.2, MCH 28.3, MCHC 33.2, RDW 13.1, Plt Count 248, MPV 9.4, Neutrophils % (Manual) 70, Lymphocytes % (Manual) 17 L, Monocytes % (Manual) 8, Eosinophils % (Manual) 2, Basophils % (Manual) 1, Neutrophils # (Manual) 3.9, Lymphocytes # (Manual) 0.9 L, Monocytes # (Manual) 0.4, Eosinophils # (Manual) 0.1, Basophils # (Manual) 0.1, Atypic/Reactive Lymphs 2, Toxic Vacuolation Trace, Platelet Estimate Normal, Giant Platelets Trace 04/20/20 15:15: PT 12.9 H, INR (Anticoag Therapy) 1.25 H 04/20/20 15:15: Sodium 135, Plasma Sodium 135, Potassium 3.3 L, Chloride 102, Carbon Dioxide 20.2 L, Anion Gap 16.1 H, BUN 12, Creatinine 1.20, Est GFR (Non- Af Amer) 64 D, BUN/Creatinine Ratio 10.0, Random Glucose 108, Calcium 8.2, Calcium Adj for Albumin 9.1, Total Bilirubin 0.8, AST 63 H, ALT 40, Alkaline Phosphatase 110, Creatine Kinase 70, Troponin I Less than 0.017, C-Reactive Prot, Quant 13.3 H, Total Protein 7.0, Albumin 2.5 L, Ethyl Alcohol Less than 3.0 04/20/20 15:15: D-Dimer 9.63 H 04/20/20 15:15: Lactic Acid, Venous 1.8 04/20/20 15:15: PTT (Pepin) 24.4 04/21/20 06:30: WBC 5.0, RBC 4.18 L, Hgb 11.9 L, Hct 36.3 L, MCV 86.8, MCH 28.5, MCHC 32.8, RDW 13.2, Plt Count 258, MPV 9.6, Neutrophils % (Manual) 79 H, Lymphocytes % (Manual) 12 L, Monocytes % (Manual) 6, Neutrophils # (Manual) 4.0, Lymphocytes # (Manual) 0.6 L, Monocytes # (Manual) 0.3, Atypic/Reactive Lymphs 3 H, Platelet Estimate Normal, RBC Morphology Normal 04/21/20 06:30: Sodium 140, Plasma Sodium 141, Potassium 4.6 D, Chloride 107 H, Carbon Dioxide 23.5 L, Anion Gap 14.1 H, BUN 11, Creatinine 1.02, Est GFR (Non- Af Amer) 77 D, BUN/Creatinine Ratio 10.8, Random Glucose 154 H D, Calcium 8.2, Calcium Adj for Albumin 9.2, Total Bilirubin 0.6, AST 67 H, ALT 46, Alkaline Phosphatase 113, Total Protein 7.1, Albumin 2.4 L Discharge Location: Home Disposition: Home self-care Condition: Fair Discharge Activity: Activity as tolerated Discharge Diet: General/regular food Problem Oriented Discharge Instructions to Patient/Family: COVID-19 Additional Patient Instructions (free text): He believes he has a visit scheduled with Dr. De La Rosa on 04/26/20. If not, please schedule with Dr. De La Rosa in 2-3 days. Complete Home Medications List: Complete Home Medication List: Blood Sugar Diagnostic, Drum [Accu-Chek Compact Plus Strips] 1 ea MC DAILY 05/13/14 sildenafil 100 mg tablet 100 mg PO DAILY PRN #20 tab 05/11/19 sertraline 100 mg tablet 100 mg PO DAILY #90 tab 11/17/19 sertraline 25 mg tablet 25 mg PO DAILY #90 tab 11/17/19 blood sugar diagnostic See Dose Instructions .ROUTE .MEDSUPPLY #100 ea 11/19/19 gabapentin 300 mg capsule 600 mg PO HS 90 Days #180 cap 11/19/19 lancets 28 gauge See Dose Instructions .ROUTE .MEDSUPPLY #100 ea 11/19/19 metformin 1,000 mg tablet 1,000 mg PO BID #180 tab 11/19/19 Cyclobenzaprine HCl 10 mg PO TID PRN #21 tab 01/03/20 levothyroxine 75 mcg tablet 75 mcg PO DAILY #90 tab 02/17/20 omeprazole 20 mg capsule,delayed release 20 mg PO DAILY #90 cap 02/17/20 clonazepam 1 mg tablet 0.5 mg PO HS #90 tab 02/18/20 atorvastatin 20 mg tablet 40 mg PO DAILY #0.1 tab 03/07/20 benzonatate 200 mg capsule 200 mg PO TID PRN #30 cap 04/17/20 Albuterol Sulfate [Proventil Hfa] 6.7 gm IH PRN PRN 04/20/20 Forms: Patient Portal Registration
[2020-04-23 13:54] VITALS: BP 106/70
== END 2020-04-23 14:28 | disposition home or self-care (01) | DRG 177 ==
LOC: ER 14:50 → MS 16:59
PROVIDERS: ADMIT Family Medicine; ATTEND Family Medicine
DX: J12.89 Other viral pneumonia; R79.89 Other specified abnormal findings of blood chemistry; R09.02 Hypoxemia; E03.9 Hypothyroidism, unspecified; E87.6 Hypokalemia; F32.9 Major depressive disorder, single episode, unspecified; U07.1 COVID-19; G47.33 Obstructive sleep apnea (adult) (pediatric); K21.9 Gastro-esophageal reflux disease without esophagitis; E11.9 Type 2 diabetes mellitus without complications